=== PATIENT | female | born 2000 | race Caucasian/White ===

== ENCOUNTER 2020-09-29 15:09 | Emergency (ER) | payer BC ==
[2020-09-29] MEDS ORDERED: Bacitracin Oint 1 GM U/D Packet TOP ONE (15:49)
[2020-09-29] MEDS ORDERED: Diphtheria,Pertussis(Acell),Tetanus Vaccine 0.5 ML Syringe IM ONE (15:49)
--- NOTE | 2020-09-29 16:07 | EDM.PDOC ---
ED HPI GENERAL MEDICAL PROBLEM - General Chief Complaint: Laceration Stated Complaint: CUT ABOVE LT EYE Time Seen by Provider: 09/29/20 15:45 Source of Information: Reports: Patient, Old Records, RN History Limitations: Reports: No Limitations - History of Present Illness INITIAL COMMENTS - FREE TEXT/NARRATIVE: 19 yo female here with a cut over the L eyebrow from a fall today. No LOC. No other complaints. Is due for tetanus. Onset: Today, Sudden Onset Date: 09/29/20 Duration: Minutes:, Constant Location: Reports: Face Quality: Reports: Dull Severity: Mild Improves with: Reports: None Worsens with: Reports: None Context: Reports: Trauma Associated Symptoms: Reports: No Other Symptoms Treatments SLIP PRESSER: Reports: Other (see below) (none) - Related Data Allergies Allergy/AdvReac Type Severity Reaction Status Date / Time No Known Allergies Allergy Verified 09/29/20 15:29 Home Meds: Home Meds NK [No Known Home Meds] 09/29/20 [History] Past Medical History Musculoskeletal History: Reports: Fracture - Past Surgical History GI Surgical History: Reports: Cholecystectomy Social & Family History - Tobacco Use Tobacco Use Status *Q: Never Tobacco User - Recreational Drug Use Recreational Drug Use: No ED ROS GENERAL - Review of Systems Review Of Systems: See Below Constitutional: Reports: No Symptoms HEENT: Reports: No Symptoms Skin: Reports: Wound (L eyebrow laceration) Neurological: Reports: No Symptoms ED EXAM, SKIN/RASH Exam: See Below Exam Limited By: No Limitations General Appearance: Alert, WD/WN, No Apparent Distress Extremities: Normal Inspection Neurological: Alert, Oriented, CN II-XII Intact, Normal Cognition, No Motor/Sensory Deficits Psychiatric: Normal Affect, Normal Mood Skin: Warm, Dry, Normal Color, No Rash, Wound/Incision (L eyebrow lac) Location, Skin: Face Characteristics: Linear Associated features: No: Warmth, Induration, Lymphangitis ED SKIN PROCEDURES - Laceration/Wound Repair Left Brow Appearance: Subcutaneous, Linear, Clean Anesthetic Type: Local Local Anesthesia - Lidocaine (Xylocaine): 1% with EPI Local Anesthetic Volume: 2cc Skin Prep: Saline Exploration/Debridement/Repair: Wound Explored, In a Bloodless Field, Explored to Base, No Foreign Material Found Closed with: Sutures Lac/Wound length In cm: 2 Suture Size: 6-0 # of Sutures: 3 Suture Type: Prolene, Interrupted, Simple, Mattress Drain Placement: No Sterile Dressing Applied: Nurse Tetanus Status Addressed: Yes Complications: No Course - Vital Signs Last Recorded V/S: Last Vital Signs Temp 36.8 C 09/29/20 15:30 Pulse 95 09/29/20 15:30 Resp 16 09/29/20 15:30 BP 131/65 09/29/20 15:30 Pulse Ox 99 09/29/20 15:30 - Orders/Labs/Meds Orders: Active Orders 24 hr Category Date Time Status Vaccines to be Administered [RC] PER UNIT ROUTINE Care 09/29/20 15:49 Active Meds: Medications Discontinued Medications Generic Name Dose Route Start Last Admin Trade Name Freq PRN Reason Stop Dose Admin Bacitracin 1 dose 09/29/20 15:49 Bacitracin Oint 1 Gm TOP 09/29/20 15:50 ONETIME ONE Diphtheria/Tetanus/Acell Pertussis 0.5 ml 09/29/20 15:49 Boostrix IM 09/29/20 15:50 .ONCE ONE Departure - Departure Time of Disposition: 16:10 Disposition: Home, Self-Care 01 Condition: Good Clinical Impression: Laceration of left eyebrow Qualifiers: Encounter type: initial encounter Qualified Code(s): S01.112A - Laceration without foreign body of left eyelid and periocular area, initial encounter - Discharge Information *PRESCRIPTION DRUG MONITORING PROGRAM REVIEWED*: Not Applicable *COPY OF PRESCRIPTION DRUG MONITORING REPORT IN PATIENT FARNAZ: Not Applicable Instructions: Laceration Care, Adult, [id number] Referrals: PCP,None [Primary Care Provider] - Additional Instructions: Clean wound twice daily with 1/2 water and 1/2 peroxide. Dry. Apply Bacitracin ointment and a new dressing. Stitches out her or in the clinic in 6 days. Return sooner for signs of infection. Sepsis Event Note (ED) - Evaluation Sepsis Screening Result: No Definite Risk - Focused Exam Vital Signs: Vital Signs Temp Pulse Resp BP Pulse Ox 09/29/20 15:30 36.8 C 95 16 131/65 99 09/29/20 15:25 36.8 C 95 16 131/65 99 - My Orders Last 24 Hours: My Active Orders 09/29/20 15:49 Vaccines to be Administered [RC] PER UNIT ROUTINE - Assessment/Plan Last 24 Hours: My Active Orders 09/29/20 15:49 Vaccines to be Administered [RC] PER UNIT ROUTINE
== END 2020-09-29 16:17 | disposition home or self-care (01) ==
LOC: JP.ED 15:09
DX: S01.112A Laceration without foreign body of left eyelid and periocular area, initial encounter (principal); Z23 Encounter for immunization; W01.0XXA Fall on same level from slipping, tripping and stumbling without subsequent striking against object, initial encounter
CPT/HCPCS: 12011; 90715; 99282; 99282-25